=== PATIENT | female | born 1975 | race Caucasian/White ===

== ENCOUNTER → 2019-05-05 | Outpatient (REF) | payer BC ==
[2019-05-13 00:07] LABS: HPV HYBRID CAPTURE II Negative (Negative)
== END ==
LOC: M LAB LCGH 13:32
PROVIDERS: ATTEND Obstetrics & Gynecology
DX: Z12.4 Encounter for screening for malignant neoplasm of cervix (principal)
CPT/HCPCS: 87624; G0123

== ENCOUNTER → 2020-10-10 | Outpatient (CLI) | payer BC ==
[~2020-10-10] MED LIST: LISI10TA22 PO; LORA-930 PO; MELO15TA28 PO; METF-838 PO; ROSU40TA4 PO; VITA500C24 PO; VITAD400CA PO; [UNRECOGNIZED DRUG - CODE] PO
--- NOTE | 2020-10-10 18:41 | REP ---
INDICATION: HEMACHROMATOSIS. COMPARISON: None. TECHNIQUE: Multiple single is obtained in the axial coronal planes without the use of intravenous contrast material. FINDINGS: There is mild hepatomegaly. The length of the liver is approximately 20 cm. There is mild splenomegaly. The length of the spleen is approximately 13.4 cm. There is no evidence of significant iron deposition in the liver. However there is a diffuse loss of signal on out of phase images throughout the liver consistent with diffuse fatty infiltration. No focal liver lesion is visualized. The adrenal glands are normal. No pancreatic abnormality is seen. No renal abnormalities seen. There is no evidence of lymphadenopathy or free fluid in the abdomen. IMPRESSION: Mild hepatosplenomegaly. Diffuse fatty infiltration of the liver. No evidence of significant iron deposition in the liver. <Electronically signed by Pee Alonzo > 10/10/20 [id number]
== END ==
LOC: M RAD 15:35
PROVIDERS: ATTEND Internal Medicine Medical Oncology
DX: K76.0 Fatty (change of) liver, not elsewhere classified (principal); R79.0 Abnormal level of blood mineral

== ENCOUNTER → 2022-05-07 | Outpatient (CLI) | payer BC ==
[~2022-05-07] MED LIST changes: +LIDOCAINE 1% MDV 20ML VIAL As Ordered ONE
[2022-05-07 16:15] VITALS: BP 163/81
== END ==
LOC: M IRPRO 13:16
PROVIDERS: ATTEND Internal Medicine Medical Oncology
DX: R79.89 Other specified abnormal findings of blood chemistry (principal); K76.0 Fatty (change of) liver, not elsewhere classified

== ENCOUNTER → 2022-09-26 | Outpatient (REF) | payer BC ==
[~2022-09-26] MED LIST changes: -LIDOCAINE 1% MDV 20ML VIAL As Ordered ONE; +MONT10TA97
== END ==
LOC: M PLALAB 15:31
PROVIDERS: ATTEND Nurse Practitioner Family
DX: Z12.4 Encounter for screening for malignant neoplasm of cervix (principal)

== ENCOUNTER → 2022-09-26 | Outpatient (CLI) | payer BC | LOC: M PLALAB 14:53 | PROVIDERS: ATTEND Nurse Practitioner Family | DX: Z12.31 Encounter for screening mammogram for malignant neoplasm of breast (principal) ==

== ENCOUNTER → 2024-01-09 | Outpatient (CLI) | payer BC ==
[~2024-01-09] MED LIST changes: -ROSU40TA4 PO; +ROSU40TA63 PO
== END ==
LOC: M WHC 11:20
PROVIDERS: ATTEND Nurse Practitioner Family
DX: Z12.31 Encounter for screening mammogram for malignant neoplasm of breast (principal)

== ENCOUNTER → 2025-01-12 | Outpatient (CLI) | payer BC ==
[~2025-01-12] MED LIST changes: -ROSU40TA63 PO; +ROSU40TA81 PO; +SEMA1PEN2
== END ==
LOC: M WHC 10:01
PROVIDERS: ATTEND Nurse Practitioner Family
DX: Z12.31 Encounter for screening mammogram for malignant neoplasm of breast (principal)

== ENCOUNTER → 2025-01-12 | Outpatient (REF) | payer BC ==
[2025-01-14 16:38] LABS: HPV APTIMA Not Detected (Not Detected)
== END ==
LOC: M SFHCWAGY 13:20
PROVIDERS: ATTEND Nurse Practitioner Family
DX: Z12.4 Encounter for screening for malignant neoplasm of cervix (principal); Z11.51 Encounter for screening for human papillomavirus (HPV)